=== PATIENT | female | born 1945 | race Caucasian/White ===

== ENCOUNTER → 2017-02-09 | Outpatient (CLI) | payer MEDICARE ==
--- NOTE | 2017-02-10 08:19 | MM ---
Reason for exam: screening (asymptomatic). Last mammogram was performed 1 year and 2 months ago. History: Patient is postmenopausal and history of other cancer. Family history of breast cancer in maternal cousin at age 50. Taking estrogen for 3 years. Physical Findings: A clinical breast exam by your physician is recommended on an annual basis and results should be correlated with mammographic findings. MG 3D Screening Mammo W/Cad Bilateral CC and MLO view(s) were taken. Prior study comparison: December 24, 2015, bilateral MG 3d screening mammo w/cad. December 22, 2014, bilateral MG screening mammo w CAD. There are scattered fibroglandular densities. There is no discrete abnormality. No significant changes when compared with prior studies. ASSESSMENT: Negative, BI-RAD 1 RECOMMENDATION: Routine screening mammogram of both breasts in 1 year.
== END | disposition home or self-care (01) ==
LOC: RADMAMWWP 09:59
PROVIDERS: ATTEND Internal Medicine
DX: Z12.31 Encounter for screening mammogram for malignant neoplasm of breast (principal)
CPT/HCPCS: 77063; G0202

== ENCOUNTER → 2018-03-12 | Outpatient (CLI) | payer MEDICARE ==
--- NOTE | 2018-03-14 13:23 | MM ---
Reason for exam: screening (asymptomatic). Last mammogram was performed 1 year and 1 month ago. History: Patient is postmenopausal and history of other cancer. Family history of breast cancer in maternal cousin at age 50. Taking estrogen for 3 years. Physical Findings: A clinical breast exam by your physician is recommended on an annual basis and results should be correlated with mammographic findings. MG 3D Screening Mammo W/Cad Bilateral CC and MLO view(s) were taken. Prior study comparison: February 09, 2017, bilateral MG 3d screening mammo w/cad. December 24, 2015, bilateral MG 3d screening mammo w/cad. The breast tissue is heterogeneously dense. This may lower the sensitivity of mammography. No significant changes when compared with prior studies. ASSESSMENT: Benign, BI-RAD 2 RECOMMENDATION: Routine screening mammogram of both breasts in 1 year.
== END | disposition home or self-care (01) ==
LOC: RADMAMWWP 07:51
PROVIDERS: ATTEND Internal Medicine
DX: Z12.31 Encounter for screening mammogram for malignant neoplasm of breast (principal)
CPT/HCPCS: 77063; 77067

== ENCOUNTER → 2019-03-22 | Outpatient (CLI) | payer MEDICARE ==
--- NOTE | 2019-03-26 09:09 | MM ---
Reason for exam: screening (asymptomatic). Last mammogram was performed 1 year ago. History: Patient is postmenopausal and history of other cancer. Family history of breast cancer in maternal cousin at age 50 and breast cancer in paternal cousin. Taking estrogen for 3 years. Physical Findings: A clinical breast exam by your physician is recommended on an annual basis and results should be correlated with mammographic findings. MG 3D Screening Mammo W/Cad Bilateral CC and MLO view(s) were taken. Prior study comparison: March 12, 2018, bilateral MG 3d screening mammo w/cad. February 09, 2017, bilateral MG 3d screening mammo w/cad. There are scattered fibroglandular densities. No significant changes when compared with prior studies. ASSESSMENT: Negative, BI-RAD 1 RECOMMENDATION: Routine screening mammogram of both breasts in 1 year.
== END | disposition home or self-care (01) ==
LOC: RADMAMWWP 08:44
PROVIDERS: ATTEND Internal Medicine
DX: Z12.31 Encounter for screening mammogram for malignant neoplasm of breast (principal)
CPT/HCPCS: 77063; 77067

== ENCOUNTER → 2019-05-03 | Outpatient (CLI) | payer MEDICARE ==
[2019-05-03 12:14] LABS: HCT 37.4 % (34.0-46.0); HGB 12.5 gm/dL (11.4-16.0); MCH 29.6 pg (25.0-35.0); MCHC 33.4 g/dL (31.0-37.0); MCV 88.7 fL (80.0-100.0); Mean Platelet Volume 6.3; Platelet Count 299 k/uL (150-450); RBC 4.22 m/uL (3.80-5.40); RDW 12.7 % (11.5-15.5); WBC 7.5 k/uL (3.8-10.6)
== END ==
LOC: LABWHC1 11:13
PROVIDERS: ATTEND Nurse Practitioner Adult Health
DX: I10 Essential (primary) hypertension (principal)
CPT/HCPCS: 36415; 85027

== ENCOUNTER → 2020-04-24 | Outpatient (CLI) | payer MEDICARE ==
--- NOTE | 2020-04-28 11:13 | MM ---
Reason for exam: screening (asymptomatic). Last mammogram was performed 1 year and 1 month ago. History: Patient is postmenopausal and history of other cancer. Family history of breast cancer in maternal cousin at age 50 and breast cancer in paternal cousin. Took estrogen for 3 years. Physical Findings: A clinical breast exam by your physician is recommended on an annual basis and results should be correlated with mammographic findings. MG 3D Screening Mammo W/Cad Bilateral CC and MLO view(s) were taken. Prior study comparison: March 22, 2019, bilateral MG 3d screening mammo w/cad. March 12, 2018, bilateral MG 3d screening mammo w/cad. There are scattered fibroglandular densities. No significant changes when compared with prior studies. ASSESSMENT: Negative, BI-RAD 1 RECOMMENDATION: Routine screening mammogram of both breasts in 1 year.
== END | disposition home or self-care (01) ==
LOC: RADMAMWWP 14:17
PROVIDERS: ATTEND Internal Medicine
DX: Z12.31 Encounter for screening mammogram for malignant neoplasm of breast (principal)
CPT/HCPCS: 77063; 77067

== ENCOUNTER 2021-04-05 15:19 | Inpatient (IN) | payer MEDICARE ==
[2021-04-05 16:34] LABS: Basophils # (A) 0.1 k/uL (0-0.2); Basophils % (A) 1 %; Eosinophils # (A) 0.2 k/uL (0-0.7); Eosinophils % (A) 3 %; HCT 40.4 % (34.0-46.0); HGB 13.7 gm/dL (11.4-16.0); Lymphocytes # (A) 1.9 k/uL (1.0-4.8); Lymphocytes % (A) 24 %; MCH 31.3 pg (25.0-35.0); MCHC 33.8 g/dL (31.0-37.0); MCV 92.6 fL (80.0-100.0); Mean Platelet Volume 8.1; Monocytes # (A) 0.7 k/uL (0-1.0); Monocytes % (A) 9 %; Neutrophils # (A) 4.9 k/uL (1.3-7.7); Neutrophils % (A) 61 %; Platelet Count 249 k/uL (150-450); RBC 4.37 m/uL (3.80-5.40); RDW 13.4 % (11.5-15.5); WBC 8.1 k/uL (3.8-10.6)
[2021-04-05 16:44] LABS: INR 0.9 (<1.2); Partial Thromboplastin Time 23.5 sec (22.0-30.0); Prothrombin Time 10.2 sec (9.0-12.0)
[2021-04-05 16:51] LABS: Albumin 4.5 g/dL (3.5-5.0); Calcium 9.3 mg/dL (8.4-10.2); Magnesium 2.1 mg/dL (1.6-2.3); Potassium 4.5 mmol/L (3.5-5.1); Total Bilirubin 0.2 mg/dL (0.2-1.3); Total Protein 7.4 g/dL (6.3-8.2)
--- NOTE | 2021-04-05 17:32 | XR ---
EXAMINATION TYPE: XR chest 2V DATE OF EXAM: 04/05/2021 COMPARISON: NONE HISTORY: Chest pain TECHNIQUE: 2 views FINDINGS: There is no heart failure nor confluent pneumonic infiltrate. Costophrenic angles are clear . Thoracic aorta is atheromatous. There are sternal wires. There are chest leads. Bony thorax is inta ct. IMPRESSION: No active cardiopulmonary disease. Normal heart.
--- NOTE | 2021-04-05 18:28 | ED ---
Chest Pain HPI - General Chief Complaint: Chest Pain Stated Complaint: chest pain Source: patient Mode of arrival: ambulatory Limitations: no limitations - History of Present Illness Initial Comments: 75 year female past medical history of hypertension, hyperlipidemia, coronary bypass surgery 3 years ago who presents to emergency room with reported chest pain. Patient states that she was playing cards around 2 PM when she had sudden onset of chest discomfort. Describes it as substernal without radiation. Denies any provocative factors. No associated shortness of breath. Denies nausea, vomiting or diaphoresis. No ripping or tearing sensation to her back. She took an aspirin at home before coming into the emergency department. No fevers, chills or cough. No numbness, tingling or weakness into her extremities. She had a triple bypass 3 years ago in [place]. States she follows with Dr. Priest. Chest pain is resolved at the time of my evaluation. No other alleviating, precipitating or modifying factors - Related Data Home Medications Medication Instructions Recorded Confirmed Aspirin EC [Ecotrin] 325 mg PO ONCE PRN 04/05/21 04/05/21 Aspirin [Adult Low Dose Aspirin EC] 81 mg PO HS 04/05/21 04/05/21 Calcium Carbonate [Calcium] 1,200 mg PO DAILY 04/05/21 04/05/21 EPINEPHrine (Auto Inject) [Epipen] 0.3 mg IM ONCE PRN 04/05/21 04/05/21 Levothyroxine Sodium [Synthroid] 50 mcg PO DAILY 04/05/21 04/05/21 Metoprolol Tartrate [Lopressor] 50 mg PO TID 04/05/21 04/05/21 Multivitamins, Thera [Multivitamin 1 tab PO DAILY 04/05/21 04/05/21 (formulary)] Rosuvastatin Calcium [Crestor] 40 mg PO HS 04/05/21 04/05/21 amLODIPine [Norvasc] 10 mg PO HS 04/05/21 04/05/21 diphenhydrAMINE [Benadryl] 25 mg PO Q8H PRN 04/05/21 04/05/21 lisinopriL [Zestril] 20 mg PO BID 04/05/21 04/05/21 Allergies Allergy/AdvReac Type Severity Reaction Status Date / Time No Known Allergies Allergy Verified 04/05/21 18:12 Review of Systems ROS Statement: Those systems with pertinent positive or pertinent negative responses have been documented in the HPI. ROS Other: All systems not noted in ROS Statement are negative. EKG Findings - EKG Comments: EKG Findings:: EKG demonstrates normal sinus rhythm with a ventricular rate 62. NV interval 168. QRS 86. QTC of 436. No acute ST segment elevations or depressions concerning for ischemic changes Past Medical History Past Medical History: Hyperlipidemia, Hypertension History of Any Multi-Drug Resistant Organisms: None Reported Past Surgical History: Cholecystectomy, Coronary Bypass/CABG, Hysterectomy Past Psychological History: No Psychological Hx Reported Smoking Status: Former smoker Past Alcohol Use History: Occasional Past Drug Use History: None Reported General Exam Limitations: no limitations General appearance: alert, in no apparent distress Head exam: Present: atraumatic, normocephalic, normal inspection Eye exam: Present: normal appearance, PERRL, EOMI. Absent: scleral icterus, conjunctival injection, periorbital swelling ENT exam: Present: normal exam, mucous membranes moist Neck exam: Present: normal inspection. Absent: tenderness, meningismus, lymphadenopathy Respiratory exam: Present: normal lung sounds bilaterally. Absent: respiratory distress, wheezes, rales, rhonchi, stridor Cardiovascular Exam: Present: regular rate, normal rhythm, normal heart sounds. Absent: systolic murmur, diastolic murmur, rubs, gallop, clicks GI/Abdominal exam: Present: soft, normal bowel sounds. Absent: distended, tenderness, guarding, rebound, rigid Extremities exam: Present: normal inspection, full ROM, normal capillary refill. Absent: tenderness, pedal edema, joint swelling, calf tenderness Back exam: Present: normal inspection Neurological exam: Present: alert, oriented X3, CN II-XII intact Psychiatric exam: Present: normal affect, normal mood Skin exam: Present: warm, dry, intact, normal color. Absent: rash Course Vital Signs 04/05/21 04/05/21 04/05/21 15:31 16:24 18:14 Temperature 97.8 F Pulse Rate 57 L 55 L 56 L Respiratory 18 18 18 Rate Blood Pressure 158/79 171/71 177/62 O2 Sat by Pulse 98 96 96 Oximetry 04/05/21 21:35 Temperature Pulse Rate 66 Respiratory 18 Rate Blood Pressure 144/55 O2 Sat by Pulse 98 Oximetry Chest Pain MDM - MDM Upon arrival patient was placed into room 3. A thorough history and physical exam was performed. 12-lead EKG was performed which answers no acute ST segment elevation or depression. Patient is pain-free at this time. Diaphoresis or conduct and the patient went for chest x-ray. Review of the patient's labs demonstrated a negative troponin. BNP is 177. Chest x-ray demonstrates no acute process. I did recommend admission orders from the patient's troponins. Patient did agree to this. She remained pain-free awaiting a bed on the floor Disposition Clinical Impression: Chest pain Disposition: ADMITTED IP TO THIS HOSP Condition: Stable Is patient prescribed a controlled substance at d/c from ED?: No Decision to Admit Reason: Admit from EC Decision Date: 04/05/21 Decision Time: 18:40
[2021-04-05] MEDS ORDERED: NITROGLYCERIN SL TABS 0.4 MG TAB SUBLINGUAL STA (18:39)
[2021-04-05] MEDS ORDERED: ACETAMINOPHEN TAB 325 MG TAB PO STA (18:39)
[2021-04-05] MEDS ORDERED: NALOXONE 0.4 MG/ML 1 ML VIAL IV PRN (18:40)
[2021-04-05] MEDS: ATORVASTATIN 80 MG TAB PO SCH (23:29)
[2021-04-05] MEDS: amLODIPine 10 MG TAB PO SCH (23:30)
[2021-04-05] MEDS: METOPROLOL TARTRATE 50 MG TAB PO SCH (23:30)
[2021-04-05] MEDS: lisinopriL 20 MG TAB PO SCH (23:30)
[2021-04-05] MEDS: ASPIRIN 81 MG PO SCH (23:30)
[2021-04-06] MEDS: lisinopriL 20 MG TAB PO SCH ×2 (08:39→20:54)
[2021-04-06] MEDS: METOPROLOL TARTRATE 50 MG TAB PO SCH ×3 (08:40→20:54)
[2021-04-06] MEDS ORDERED: REGADENOSON 0.4 MG/5 ML SYRINGE IV PRN (08:53)
[2021-04-06] MEDS ORDERED: CAFFEINE CITRATE 60 MG/3 ML VIAL IV PRN (08:53)
[2021-04-06] MEDS ORDERED: AMINOPHYLLINE 500 MG/20 ML VIAL IV PRN (08:53)
[2021-04-06 10:00] LABS: Basophils # (A) 0.06 X 10*3/uL (0.00-0.10); Basophils % (A) 0.7 %; Eosinophils # (A) 0.19 X 10*3/uL (0.04-0.35); Eosinophils % (A) 2.2 %; HCT 39.6 % (37.2-46.3); Lymphocytes # (A) 1.47 X 10*3/uL (0.90-5.00); Lymphocytes % (A) 17.3 %; MCH 30.1 pg (27.0-32.0); MCHC 32.8 g/dL (32.0-37.0); MCV 91.7 fL (80.0-97.0); Mean Platelet Volume 10.8 fL (9.5-12.2); Monocytes # (A) 0.77 X 10*3/uL (0.20-1.00); Monocytes % (A) 9.1 %; Neutrophils # (A) 5.96 X 10*3/uL (1.80-7.70); Neutrophils % (A) 70.3 %; Platelet Count 265 X 10*3/uL (140-440); RBC 4.32 X 10*6/uL (4.10-5.20); RDW 12.8 % (11.5-14.5); WBC 8.48 X 10*3/uL (4.50-10.00)
--- NOTE | 2021-04-06 10:01 | P.CRDCN ---
History of Present Illness History of present illness: HISTORY OF PRESENTING ILLNESS This is a pleasant 75-year-old female past medical history significant for coronary artery disease status post three-vessel bypass grafting in 2019 wh ile living in [place], hypertension and dyslipidemia. She follows in the office with Dr Chavez. We have been asked to see in consultation for chest pain. Dates yesterday she was sitting down doing nothing in particular when she had sudden onset of chest discomfort in the midsternal region. She states it was a heavy pain sensation that was mild in nature. There was no radiation to the arm, back, neck or jaw. She had no associated symptoms. However her discomfort felt exactly similar to how she felt prior to needing open heart surgery causing her some concern. She came to the hospital for further evaluation. The pain in total lasted approximately 30 minutes and subsided on its own. She has been chest pain-free since that time. DIAGNOSTICS EKG reveals sinus mechanism with no acute ST or T wave abnormalities noted. Telemetry tracings indicate sinus mechanism with no acute arrhythmia. Chest xray negative for any acute cardiopulmonary process. Laboratory reviewed, CBC unremarkable, sodium 136, potassium 4.5, creatinine 0.9, magnesium 2.1, cardiac enzymes negative 3, proBNP 177. Current cardiac medications include Lopressor 50 mg 3 times a day, lisinopril 20 mg twice a day, aspirin 81 mg daily, rosuvastatin 40 mg daily and amlodipine 10 mg daily. Most recent echocardiogram obtained November 2019 revealed preserved LV systolic function with ejection fraction 55%, mildly dilated right ventricle, slightly dilated right atrium, moderate mitral regurgitation, mild aortic regurgitation and mild to moderate tricuspid regurgitation. REVIEW OF SYSTEMS At the time of my exam: CONSTITUTIONAL: Denies fever or chills. CARDIOVASCULAR: Denies chest pain, shortness of breath, orthopnea, PND or palpitations. RESPIRATORY: Denies cough. GASTROINTESTINAL: Denies abdominal pain, diarrhea, constipation, nausea or vomiting. MUSCULOSKELETAL: Denies myalgias. NEUROLOGIC: Denies numbness, tingling, headache or weakness. ENDOCRINE: Denies fatigue, weight change, polydipsia or polyurina. GENITOURINARY: Denies burning, hematuria or urgency with micturation. HEMATOLOGIC: Denies history of anemia or bleeding. PHYSICAL EXAMINATION Blood pressure 137/63 heart rate 66 afebrile and maintaining oxygen saturation on room air. CONSTITUTIONAL: No apparent distress. HEENT: Head is normocephalic. Pupils are equal, round. Sclerae anicteric. Mucous membranes of the mouth are moist. No JVD. No carotid bruit. CHEST EXAMINATION: Lungs are clear to auscultation. No chest wall tenderness is noted on palpation or with deep breathing. HEART EXAMINATION: Regular rate and rhythm. S1, S2 heard. No murmurs, gallops or rub. ABDOMEN: Soft, nontender. EXTREMITIES: 2+ peripheral pulses, no lower extremity edema and no calf tenderness. NEUROLOGIC EXAMINATION: Patient is awake, alert and oriented x3. ASSESSMENT Chest pain Coronary artery disease status post bypass grafting Hypertension Dyslipidemia PLAN An acute coronary event has been ruled out. Given similar presentation of symptoms as to her previous coronary event we recommend proceeding with a Lexiscan stress test to assess for any reversible cardiac ischemia. If stress test is normal she may be discharged home to follow-up with Dr. Chavez in the office. Thank you kindly for this consultation. Nurse Practitioner note has been reviewed, I agree with a documented findings and plan of care. Patient was seen and examined. Past Medical History Past Medical History: Hyperlipidemia, Hypertension History of Any Multi-Drug Resistant Organisms: None Reported Past Surgical History: Cholecystectomy, Coronary Bypass/CABG, Hysterectomy Additional Past Surgical History / Comment(s): cataract sx Past Psychological History: No Psychological Hx Reported Smoking Status: Former smoker Past Alcohol Use History: Occasional Past Drug Use History: None Reported Medications and Allergies Home Medications Medication Instructions Recorded Confirmed Type Aspirin EC [Ecotrin] 325 mg PO ONCE PRN 04/05/21 04/05/21 History Aspirin [Adult Low Dose Aspirin EC] 81 mg PO HS 04/05/21 04/05/21 History Calcium Carbonate [Calcium] 1,200 mg PO DAILY 04/05/21 04/05/21 History EPINEPHrine (Auto Inject) [Epipen] 0.3 mg IM ONCE PRN 04/05/21 04/05/21 History Levothyroxine Sodium [Synthroid] 50 mcg PO DAILY 04/05/21 04/05/21 History Metoprolol Tartrate [Lopressor] 50 mg PO TID 04/05/21 04/05/21 History Multivitamins, Thera [Multivitamin 1 tab PO DAILY 04/05/21 04/05/21 History (formulary)] Rosuvastatin Calcium [Crestor] 40 mg PO HS 04/05/21 04/05/21 History amLODIPine [Norvasc] 10 mg PO HS 04/05/21 04/05/21 History diphenhydrAMINE [Benadryl] 25 mg PO Q8H PRN 04/05/21 04/05/21 History lisinopriL [Zestril] 20 mg PO BID 04/05/21 04/05/21 History Allergies Allergy/AdvReac Type Severity Reaction Status Date / Time No Known Allergies Allergy Verified 04/05/21 18:12 Physical Exam Vitals: Vital Signs Temp Pulse Pulse Resp BP BP Pulse Ox 04/06/21 08:30 99 04/06/21 07:00 97.8 F 66 18 137/63 97 04/06/21 02:00 98.2 F 66 16 141/77 97 04/05/21 22:49 98.3 F 62 16 148/60 95 04/05/21 21:35 66 18 144/55 98 04/05/21 18:14 56 L 18 177/62 96 04/05/21 16:24 55 L 18 171/71 96 04/05/21 15:31 97.8 F 57 L 18 158/79 98 Intake and Output 04/05/21 04/06/21 04/06/21 22:59 06:59 14:59 Other: Voiding Method Toilet # Voids 0 2 Weight 68.039 kg Results 04/05/21 16:23 04/05/21 16:23 Cardiac Enzymes 04/05/21 04/05/21 04/05/21 Range/Units 16:23 16:23 21:09 AST 31 (14-36) U/L Troponin I <0.012 <0.012 (0.000-0.034) ng/mL 04/06/21 Range/Units 00:41 AST (14-36) U/L Troponin I <0.012 (0.000-0.034) ng/mL Coagulation 04/05/21 Range/Units 16:23 PT 10.2 (9.0-12.0) sec APTT 23.5 (22.0-30.0) sec CBC 04/05/21 Range/Units 16:23 WBC 8.1 (3.8-10.6) k/uL RBC 4.37 (3.80-5.40) m/uL Hgb 13.7 (11.4-16.0) gm/dL Hct 40.4 (34.0-46.0) % Plt Count 249 (150-450) k/uL Comprehensive Metabolic Panel 04/05/21 Range/Units 16:23 Sodium 136 L (137-145) mmol/L Potassium 4.5 (3.5-5.1) mmol/L Chloride 104 (98-107) mmol/L Carbon Dioxide 23 (22-30) mmol/L BUN 27 H (7-17) mg/dL Creatinine 0.90 (0.52-1.04) mg/dL Glucose 96 (74-99) mg/dL Calcium 9.3 (8.4-10.2) mg/dL AST 31 (14-36) U/L ALT 22 (4-34) U/L Alkaline Phosphatase 51 (38-126) U/L Total Protein 7.4 (6.3-8.2) g/dL Albumin 4.5 (3.5-5.0) g/dL Current Medications Generic Name Dose Route Start Last Admin Trade Name Freq PRN Reason Stop Dose Admin Amlodipine Besylate 10 mg 04/05/21 23:00 04/05/21 23:30 Amlodipine 10 Mg Tab PO 10 mg HS KIYA Administration Aspirin 81 mg 04/05/21 23:00 04/05/21 23:30 Aspirin 81 Mg PO 81 mg HS KIYA Administration Atorvastatin Calcium 80 mg 04/05/21 23:00 04/05/21 23:29 Atorvastatin 80 Mg Tab PO 80 mg HS KIYA Administration Lisinopril 20 mg 04/05/21 23:00 04/06/21 08:39 Lisinopril 20 Mg Tab PO 20 mg BID KIYA Administration Metoprolol Tartrate 50 mg 04/05/21 23:00 04/06/21 08:40 Metoprolol Tartrate 50 Mg Tab PO 50 mg TID KIYA Administration Naloxone HCl 0.2 mg 04/05/21 18:40 Naloxone 0.4 Mg/Ml 1 Ml Vial IV Q2M PRN Opioid Reversal Intake and Output 04/05/21 04/06/21 04/06/21 22:59 06:59 14:59 Other: Voiding Method Toilet # Voids 0 2 Weight 68.039 kg 04/05/21 16:23 04/05/21 16:23
[2021-04-06 11:47] LABS: African American GFR (CKD) 82.4 (60.0-200.0); Anion Gap 9.1 mmol/L (4.00-12.00); BUN/Creat Ratio 23.75 Ratio (12.00-20.00); Calcium 8.9 mg/dL (8.7-10.3); Carbon Dioxide 24.9 mmol/L (21.6-31.8); Non-African American GFR(CKD) 71.1 (60.0-200.0); Potassium 4.3 mmol/L (3.5-5.5)
[2021-04-06] MEDS: ALBUTEROL NEBULIZED 2.5 MG/3 ML INHALATION SCH ×2 (11:52→20:05)
[2021-04-06] MEDS: LEVOTHYROXINE 50 MCG TAB PO SCH (13:12)
[2021-04-06] MEDS: MULTIVITAMINS, THERA 1 EACH TAB PO SCH (13:12)
[2021-04-06 13:22] LABS: Chol/HDL Ratio 2.98; LDL Cholesterol,Calculated 72.4 mg/dL (0.0-131.0); VLDL Calculation 14.6 mg/dL (5.00-40.00)
--- NOTE | 2021-04-06 14:41 | NM ---
EXAMINATION TYPE: NM stress lexiscan cardiolite DATE OF EXAM: 04/06/2021 COMPARISON: NONE HISTORY: Chest pain TECHNIQUE: After the intravenous administration of 9.3 mCi Tc 99m Sestamibi - Cardiolite resting SPE CT images acquired 45 minutes post injection. The patient received 0.4mg Lexiscan, 26.5 mCi Tc 99m Sestamibi - Stress images obtained [address] injection FINDINGS: Review of stress and rest SPECT images are markable for decreased uptake noted along the apical regio n on stress as compared to rest images extending into the lateral wall. Gated analysis shows normal wall motion with an estimated left ventricular ejection fraction of 69 %. IMPRESSION: Pharmacologically induced left ventricular myocardial ischemia. Consider echocardiographic correlation for elevated ejection fraction
[2021-04-06] MEDS ORDERED: ALPRAZolam 0.5 MG TAB PO PRN (14:47)
[2021-04-06] MEDS ORDERED: ALPRAZolam 0.25 MG TAB PO PRN (14:47)
--- NOTE | 2021-04-06 16:28 | P.STRESS ---
- Stress Test Note Stress Test Results/Findings: Exam Performed: NM stress lexiscan cardiolite Exam Date: 04/06/21 Reason for Exam: Chest Pain Height: 5 ft 2 in Weight: 68.04 kg Protocol: Lexiscan Stage: na Duration of Exercise: na Resting Heart Rate: 53 Resting Blood Pressure: 200/70 Maximum Achieved Heart Rate: 91 Maximum Achieved Blood Pressure: 200/70 85% PMHR: 122 100% PMHR: 143 METS: na Technologist Comment: Stress Test Results/Findings: The central EKG shows sinus rhythm with normal ST segments Baseline blood pressure 200/70 mmHg Patient received Lexiscan infusion protocol Changeinheartrate Elevated bloodpressurereadings 0.5mmSTdepressioninferolaterally Newproportionalbereportedseparately Noarrhythmias
--- NOTE | 2021-04-06 16:55 | HP ---
HISTORY AND PHYSICAL CHIEF COMPLAINT: Chest pain. HISTORY OF PRESENT ILLNESS: This 75-year-old woman with a past medical history of hypertension, hyperlipidemia, being followed by Dr. Drew in the outpatient setting, was complaining of chest pain. The patient had sudden onset of chest pain yesterday at 2 p.m. It was felt in the substernal area, more of a heaviness, mild to moderate intensity, 3-4 intensity, without any radiation, palpitation, diaphoresis. The patient came to [facility] and was admitted for further evaluation and treatment. EKG showed no abnormality. Troponins were negative. The patient underwent a stress echo which showed possible reversible ischemia. Patient is being closely monitored. Cardiology has seen the patient. There is no history of any fever, rigors or chills. No history of headache, loss of consciousness, seizures. PAST MEDICAL HISTORY: History of hypertension, hyperlipidemia. MEDICATIONS PRIOR TO ADMISSION: Home medications are aspirin, Norvasc, Crestor, multivitamins, Ecotrin, Benadryl, EpiPen, calcium, lopressor, Synthroid. ALLERGIES: NONE. FAMILY HISTORY: No history of heart disease or strokes in the family. SOCIAL HISTORY: Previous history of smoking. REVIEW OF SYSTEMS: ENT: No diminished hearing. No diminished vision. CARDIOVASCULAR SYSTEM: As mentioned earlier. RESPIRATORY SYSTEM: As mentioned earlier. GI: As mentioned earlier. : No dysuria. NERVOUS SYSTEM: No numbness, weakness. ALLERGY/IMMUNOLOGY: No asthma or hay fever. MUSCULOSKELETAL: As mentioned earlier. HEMATOLOGY/ONCOLOGY: No history of anemia. ENDOCRINE: No history of diabetes, hypothyroidism. CONSTITUTIONAL: As mentioned earlier. DERMATOLOGY: Negative. RHEUMATOLOGY: Negative. PSYCHIATRY: As mentioned earlier. PHYSICAL EXAMINATION: Patient is alert and oriented x3. Pulse 66, blood pressure 137/63, respiration 18, temperature 97.8, pulse ox 97% on room air. HEENT: Conjunctivae normal. NECK: No jugular venous distention. CARDIOVASCULAR: S1, S2 muffled. RESPIRATION: Breath sounds diminished at the bases. No rhonchi. No crackles. ABDOMEN: Soft, nontender. No mass palpable. LEGS: No edema. No swelling. NERVOUS SYSTEM: Higher functions as mentioned earlier. Moves all 4 limbs. No focal motor or sensory deficit. LYMPHATICS: No lymph node palpable in neck, axillae or groin. SKIN: No ulcer, rash, bleeding. JOINTS: No active deforming arthropathy. LABS: CBC within normal limits. Sodium 136, BUN is 27. ASSESSMENT: 1. Chest pain, possible unstable angina. 2. Positive stress echo. 3. Hyponatremia, mild. 4. Hypertension. 5. Hyperlipidemia. 6. History of cholecystectomy. 7. History of coronary artery disease, coronary artery bypass grafting. 8. History of nicotine dependence. RECOMMENDATIONS AND DISCUSSION: In this 75-year-old who presented with multiple medical issues, we will monitor the patient closely, continue the current medications, continue symptomatic treatment, continue the antiplatelet agents. Continue the rest of the medication. Continue with Lipitor. Possible cardiac cath. Closely follow with Cardiology. Guarded prognosis. Further recommendations to follow. MMODL / IJN: [id number] /
[2021-04-06] MEDS: ASPIRIN 81 MG PO SCH (20:54)
[2021-04-06] MEDS: amLODIPine 10 MG TAB PO SCH (20:54)
[2021-04-06] MEDS: ATORVASTATIN 80 MG TAB PO SCH (20:54)
[2021-04-06] MEDS ORDERED: SODIUM CHLORIDE 0.9% 1,000 ML in EMPTY BAG 1 BAG IV ONE (23:59)
[2021-04-07] MEDS: METOPROLOL TARTRATE 50 MG TAB PO SCH ×3 (05:35→21:47)
[2021-04-07] MEDS: MULTIVITAMINS, THERA 1 EACH TAB PO SCH (05:36)
[2021-04-07] MEDS: LEVOTHYROXINE 50 MCG TAB PO SCH (05:36)
[2021-04-07] MEDS: lisinopriL 20 MG TAB PO SCH ×2 (05:36→21:48)
[2021-04-07] MEDS ORDERED: ASPIRIN 325 MG TAB PO ONE (06:00)
[2021-04-07] MEDS ORDERED: HEPARIN SODIUM,PORCINE 10,000 UNIT in SODIUM CHLORIDE 0.9% 1,000 ML IRRIGATION PRN (07:00)
[2021-04-07] MEDS ORDERED: HEPARIN SODIUM,PORCINE 2,500 UNIT in SODIUM CHLORIDE 0.9% 250 ML IRRIGATION PRN (07:00)
[2021-04-07] MEDS: ALBUTEROL NEBULIZED 2.5 MG/3 ML INHALATION SCH ×3 (09:18→19:24)
[2021-04-07] MEDS: EZETIMIBE 10 MG TAB PO SCH (10:34)
--- NOTE | 2021-04-07 10:46 | ECHOS ---
Stress Test Results/Findings: Exam Performed: NM stress lexiscan cardiolite Exam Date: 04/06/21 Reason for Exam: Chest Pain Height: 5 ft 2 in Weight: 68.04 kg Protocol: Lexiscan Stage: na Duration of Exercise: na Resting Heart Rate: 53 Resting Blood Pressure: 200/70 Maximum Achieved Heart Rate: 91 Maximum Achieved Blood Pressure: 200/70 85% PMHR: 122 100% PMHR: 143 METS: na Technologist Comment: Stress Test Results/Findings: The central EKG shows sinus rhythm with normal ST segments Baseline blood pressure 200/70 mmHg Patient received Lexiscan infusion protocol Change in heart rate Elevated blood pressure readings 0.5mmST depression inferolaterally Nuclear medicine portion reported separately No arrhythmias MTDD
[2021-04-07] MEDS ORDERED: VERAPAMIL 2.5 MG/ML 2 ML AMP ONE (15:11)
[2021-04-07] MEDS ORDERED: LIDOCAINE 1% INJ 10MG/ML (20 ML MDV) ONE (15:11)
[2021-04-07] MEDS ORDERED: HEPARIN SODIUM 1,000 UN/ML (10ML VL) ONE (15:11)
[2021-04-07] MEDS ORDERED: IV FLUID CONTINUATION 100 ML IV ONE (15:27)
[2021-04-07] MEDS ORDERED: MIDAZOLAM 2 MG/2 ML VIAL IV ONE (15:35)
[2021-04-07] MEDS ORDERED: LIDOCAINE 1% INJ 10MG/ML (20 ML MDV) SQ ONE (15:36)
[2021-04-07] MEDS ORDERED: RX INFO: IV CONTRAST WAS GIVEN 1 EACH MISC MISCELLANE PRN (15:59)
[2021-04-07] MEDS ORDERED: SODIUM CHLORIDE 0.9% 1,000 ML IV SCH (16:00)
[2021-04-07] MEDS ORDERED: IOPAMIDOL-370 125ML BTL INJ ONE (16:08)
--- NOTE | 2021-04-07 19:57 | PN ---
PROGRESS NOTE DATE OF SERVICE: 04/07/2021 This 75-year-old woman being for Dr. Drew in the outpatient setting was admitted with chest pain. Patient had abnormal cardiac stress test. Patient is scheduled for cardiac cath today. No chest pain, no palpitation, no fever. EXAM: Alert and oriented x3. Pulse 59, blood pressure 160/70, respirations 16, temperature is normal, pulse ox 98% on room air. HEENT: Conjunctivae normal. Oral mucosa moist. NECK: No jugular venous distention. No lymph node enlargement. CARDIOVASCULAR: S1, S2, muffled. No S3, no S4, RESPIRATORY: Diminished breath sounds at the bases. No rhonchi, no crackles. ABDOMEN: Soft, nontender. LEGS: No edema, no swelling. NERVOUS SYSTEM: No focal deficits. LABS: Noted. ASSESSMENT: 1. Chest pain, possible unstable angina. 2. Positive stress test. 3. Hypertension. 4. Hypernatremia, mild. 5. Hyperlipidemia. 6. History of cholecystectomy. 7. History of CAD, CABG. 8. History of nicotine dependence. RECOMMENDATION: Recommend to continue current management, continue symptomatic treatment. Otherwise, I would recommend continue with Norvasc and current medications. The blood pressure is still elevated. Hydralazine may be added to the current regimen. Guarded prognosis. Further recommendations to follow. MMODL / IJN: [id number] /
[2021-04-07] MEDS: amLODIPine 10 MG TAB PO SCH (21:48)
[2021-04-07] MEDS: ASPIRIN 81 MG PO SCH (21:48)
[2021-04-07] MEDS: hydrALAZINE HCL 50 MG TAB PO SCH ×2 (21:48)
[2021-04-07] MEDS: ATORVASTATIN 80 MG TAB PO SCH (21:48)
--- NOTE | 2021-04-07 22:21 | CC ---
CARDIAC CATHETERIZATION REPORT DATE OF PROCEDURE: 04/07/2021 PERFORMING PHYSICIAN: Praveen Chavez M.D. PROCEDURE PERFORMED: 1. Selective left and right coronary angiogram. 2. Left heart catheterization. 3. GARCIA to LAD angiogram. 4. SVG to LCX angiogram. 5. SVG to RCA angiogram. INDICATION: Chest discomfort and abnormal myocardial perfusion imaging stress test. COMPLICATIONS: None. LEVEL OF SEDATION: Moderate, with sedation length of 21 minutes. PROCEDURE DESCRIPTION: After obtaining informed consent, the patient was brought to the cardiac chemical lab supervisor. The right common femoral artery was cannulated using micropuncture technique. The micropuncture wire passed easily. Then I placed a 6-Portuguese sheath at the right common femoral artery. Selective left and right coronary angiogram was performed using JL4 and JR4 catheters. GARCIA to LAD angiogram was performed using JR4 catheter. SVG to RCA angiogram was performed using a multipurpose catheter. SVG to left circumflex angiogram was performed using a JR4 catheter. After that I did left heart catheterization using a 6-Portuguese pigtail catheter. The procedure was completed without any complication after I did selective right common femoral artery angiogram. SELECTIVE CORONARY ANGIOGRAM: 1. The left main appeared to have mild disease only. It bifurcates into left circumflex and left anterior descending artery. 2. The left circumflex is a large-caliber vessel. The left circumflex is chronically occluded by the proximal to mid portion. 3. The LAD. The proximal LAD has a lesion that appeared to be in the range of 70% to 80%. It gives rise to first and second diagonal branches, then the LAD in the mid portion appeared to be subtotally occluded with competitive flow from the GARCIA. 4. The right coronary artery is subtotally occluded. ANGIOPLASTY OF CORONARY BYPASSES: 1. The GARCIA to LAD is patent. 2. The SVG to left circumflex is patent. 3. The SVG to RCA is patent. HEMODYNAMICS: The LVEDP was 10 to 12 mmHg without significant gradient across the aortic valve. CONCLUSION: 1. Severe triple-vessel coronary artery disease. 2. Patent GARCIA to LAD. 3. Patent SVG to LCX. 4. Patent SVG to RCA. 5. Normal LVEDP. POSTPROCEDURE MANAGEMENT: Medical treatment and follow up with the patient. MMODL / IJN: [id number] /
[2021-04-07 22:40] VITALS: PULSE 62
[2021-04-08 02:37] VITALS: BP 164/62; RESP 16; TEMP 97.8
[2021-04-08] MEDS: LEVOTHYROXINE 50 MCG TAB PO SCH (05:34)
[2021-04-08 06:25] LABS: Basophils # (A) 0.1 k/uL (0-0.2); Basophils % (A) 1 %; Eosinophils # (A) 0.2 k/uL (0-0.7); Eosinophils % (A) 3 %; HCT 43.6 % (34.0-46.0); HGB 14.5 gm/dL (11.4-16.0); Lymphocytes # (A) 1.6 k/uL (1.0-4.8); Lymphocytes % (A) 21 %; MCH 30.9 pg (25.0-35.0); MCHC 33.3 g/dL (31.0-37.0); MCV 92.9 fL (80.0-100.0); Mean Platelet Volume 7.8; Monocytes # (A) 0.6 k/uL (0-1.0); Monocytes % (A) 7 %; Neutrophils # (A) 5.1 k/uL (1.3-7.7); Neutrophils % (A) 66 %; Platelet Count 268 k/uL (150-450); RBC 4.69 m/uL (3.80-5.40); RDW 13.2 % (11.5-15.5); WBC 7.7 k/uL (3.8-10.6)
[2021-04-08 06:40] LABS: African American GFR (CKD) 84 (>60 ml/min/1.73 sqM); Anion Gap 8 mmol/L; Blood Urea Nitrogen 18 mg/dL (7-17); Carbon Dioxide 24 mmol/L (22-30); Chloride 104 mmol/L (98-107); Glucose 102 mg/dL (74-99); Non-African American GFR(CKD) 73 (>60 ml/min/1.73 sqM); Potassium 4.3 mmol/L (3.5-5.1); Sodium 136 mmol/L (137-145)
[2021-04-08] MEDS ORDERED: carvediloL 12.5 MG TAB PO SCH (08:15)
[2021-04-08] MEDS: ALBUTEROL NEBULIZED 2.5 MG/3 ML INHALATION SCH (08:37)
[2021-04-08] MEDS: MULTIVITAMINS, THERA 1 EACH TAB PO SCH (09:03)
[2021-04-08] MEDS: lisinopriL 20 MG TAB PO SCH (09:05)
[2021-04-08] MEDS: EZETIMIBE 10 MG TAB PO SCH (09:08)
--- NOTE | 2021-04-08 10:04 | P.PN ---
Subjective This is a pleasant 75-year-old female past medical history significant for coronary artery disease status post three-vessel bypass grafting in 2019 while living in [place], hypertension and dyslipidemia. She follows in the office with Dr Chavez. We have been asked to see in consultation for chest pain. Most recent echocardiogram obtained November 2019 revealed preserved LV systolic function with ejection fraction 55%, mildly dilated right ventricle, slightly dilated right atrium, moderate mitral regurgitation, mild aortic regurgitation and mild to moderate tricuspid regurgitation. Given similar presentation of symptoms as to her previous coronary event cardiology recommend proceeding with a Lexiscan stress test to assess for any reversible cardiac ischemia. Lexiscan stress test on 04/06/2021 revealed pharmacologically induced left ventricular myocardial ischemia. Patient underwent cardiac catheterization with Dr. Chavez on 04/07/2021 which revealed patent GARCIA to LAD, patent SVG to LCx, patent SVG to RCA, normal LVEDP. Medical therapy is recommended. Patient seen and examined at bedside, no acute distress. She denies any chest pain, shortness of breath, lightheadedness, dizziness. Her blood pressure continues to be elevated. Blood pressure 164/62, heart rate 62, afebrile, maintaining oxygen saturations 98% on room air. She is currently maintained on amlodipine 10 mg nightly, aspirin 81 mg daily, atorvastatin 80 mg nightly, Zetia 10 mg daily, lisinopril 20 mg twice a day, metoprolol tartrate 50 mg 3 times a day. PHYSICAL EXAMINATION CONSTITUTIONAL: No apparent distress. HEENT: Head is normocephalic. Pupils are equal, round. Sclerae anicteric. Mucous membranes of the mouth are moist. No JVD. No carotid bruit. CHEST EXAMINATION: Lungs are clear to auscultation. No chest wall tenderness is noted on palpation or with deep breathing. HEART EXAMINATION: Regular rate and rhythm. S1, S2 heard. No murmurs, gallops or rub. ABDOMEN: Soft, nontender. EXTREMITIES: 2+ peripheral pulses, no lower extremity edema and no calf tenderness. NEUROLOGIC EXAMINATION: Patient is awake, alert and oriented x3. SKIN: Right fem cath site, clean dry intact no hematoma ASSESSMENT Chest pain Coronary artery disease status post bypass grafting Hypertension Dyslipidemia PLAN We will discontinue metoprolol tartrate Start carvedilol 12.5 mg twice a day Continue Zetia, amlodipine, statin, aspirin, lisinopril. From cardiology perspective, patient stable to be discharged home. Patient to follow-up in the office with Dr. Chavez within one week. Nurse Practitioner note has been reviewed, I agree with a documented findings and plan of care. Patient was seen and examined. Objective - Vital Signs Vital signs: Vital Signs Temp 97.8 F 04/08/21 00:42 Pulse 62 04/08/21 00:42 Resp 16 04/08/21 00:42 BP 164/62 04/08/21 00:42 Pulse Ox 98 04/08/21 00:42 Intake & Output 04/07/21 04/08/21 04/08/21 18:59 06:59 18:59 Intake Total 884 240 Balance 884 240 Intake: IV 100 Intake, IV Titration 544 Amount Sodium Chloride 0.9% 1, 544 000 ml In Empty Bag 1 bag @ 1 ML/KG/HR 68.04 mls/ hr IV .[id number] ONE Rx#: [id number] Oral 240 240 Other: Voiding Method Toilet # Voids 2 1 # Bowel Movements 0 - Labs CBC & Chem 7: 04/08/21 05:50 04/08/21 05:50 Labs: Abnormal Lab Results - Last 24 Hours (Table) 04/08/21 Range/Units 05:50 Sodium 136 L (137-145) mmol/L BUN 18 H (7-17) mg/dL Glucose 102 H (74-99) mg/dL
--- NOTE | 2021-04-08 17:59 | DS ---
DISCHARGE SUMMARY FINAL DIAGNOSES: 1. Chest pain possible unstable angina, status post cardiac catheterization. 2. Positive stress test. 3. Hypertension. 4. Hyponatremia mild. 5. Hyperlipidemia. 6. History of cholecystectomy. 7. History of coronary artery disease/coronary artery bypass grafting. 8. History of nicotine dependence. DISCHARGE DISPOSITION: The patient being discharged in stable condition with guarded prognosis. HISTORY OF PRESENT ILLNESS: This 75 -year-old woman with a past history of multiple medical problems was admitted with chest pain, myocardial infarction, ruled out. Stress test was abnormal. The patient underwent a cardiac cath done by Dr. Chavez which showed severe triple-vessel disease, [place] arteries and patent GARCIA to LAD, patent SVG to left circumflex and patent SVG to RCA, normal LVEDP. Medication adjusted. The patient improved significantly. The patient discharged home in stable condition with guarded prognosis. EXAM: Vitals signs are stable. Cardiovascular: S1, S2 muffled. Abdomen soft. Nervous system: No focal deficits. DISCHARGE ADVICE AND MEDICATIONS: 1. Diet is cardiac diet. 2. Activity limited until followup. 3. Follow up with Dr. Drew in 2-3 days. 4. Follow up with Dr. Cahvez as recommended. DISCHARGE MEDICATIONS: 1. Ecotrin 81 mg p.o. daily. 2. Benadryl 25 mg q.8. 3. Calcium 100 mg p.o. daily. 4. Crestor 40 mg q.h.s. 5. EpiPen as before. 6. Multivitamins one p.o. daily. 7. Norvasc 10 mg q.h.s. 8. Synthroid 50 mcg p.o. daily. 9. Zestril 20 mg p.o. b.i.d. 10.Coreg 12.5 mg p.o. b.i.d. 11.Zetia 10 mg p.o. daily. Once again the patient discharged in stable and guarded prognosis. MMODL / IJN: [id number] /
== END 2021-04-08 11:22 | disposition home or self-care (01) ==
LOC: EC 15:19 → 6NMEDSUR 18:40 → OBSVTOIN 04-07 08:52
PROVIDERS: ADMIT Hospitalist; ATTEND Hospitalist
CPT/HCPCS: 36415; 71046; 78452; 80048; 80053; 80061; 83735; 83880; 84484; 85025; 85610; 85730; 93005; 93017; 93458; 94640; 94760; 99285

== ENCOUNTER → 2021-05-21 | Outpatient (CLI) | payer MEDICARE ==
--- NOTE | 2021-05-24 10:58 | MM ---
Reason for exam: screening (asymptomatic). Last mammogram was performed 1 year and 1 month ago. History: Patient is postmenopausal and history of other cancer. Family history of breast cancer in maternal cousin at age 50 and breast cancer in paternal cousin. Took estrogen for 3 years. Physical Findings: A clinical breast exam by your physician is recommended on an annual basis and results should be correlated with mammographic findings. MG 3D Screening Mammo W/Cad Bilateral CC and MLO view(s) were taken. Prior study comparison: April 24, 2020, bilateral MG 3d screening mammo w/cad. March 22, 2019, bilateral MG 3d screening mammo w/cad. There are scattered fibroglandular densities. ASSESSMENT: Negative, BI-RAD 1 RECOMMENDATION: Routine screening mammogram of both breasts in 1 year.
== END | disposition home or self-care (01) ==
LOC: RADMAMWWP 10:48
PROVIDERS: ATTEND Internal Medicine
DX: Z12.31 Encounter for screening mammogram for malignant neoplasm of breast (principal); Z80.3 Family history of malignant neoplasm of breast; Z78.0 Asymptomatic menopausal state
CPT/HCPCS: 77063; 77067

== ENCOUNTER → 2021-12-07 | Outpatient (CLI) | payer MEDICARE ==
--- NOTE | 2021-12-07 15:48 | XR ---
Right hip HISTORY: Right hip pain 2 views of the right hip There is concentric joint space loss and marginal spurring, subchondral sclerosis and possible subcho ndral geode formation. Alignment is maintained. Distal fracture or dislocation. IMPRESSION: Correlate fracture or arthritis, there may be femoral acetabular impingement
== END | disposition home or self-care (01) ==
LOC: RADXRYALE 15:15
PROVIDERS: ATTEND Internal Medicine
DX: M25.551 Pain in right hip (principal)
CPT/HCPCS: 73502

== ENCOUNTER → 2023-01-06 | Outpatient (CLI) | payer MEDICARE ==
--- NOTE | 2023-01-06 14:55 | BD ---
EXAMINATION TYPE: Axial Bone Density DATE OF EXAM: 01/06/2023 CLINICAL HISTORY: 77 years old Female. ICD-10 CODE: N958 MARTHA DISORDER Height: 61in Weight: 147lb FRAX RISK QUESTIONS: Secondary Osteoporosis: 3. Menopause before 45: yes RISK FACTORS HISTORY OF: Active: yes Postmenopausal woman: yes Take estrogen and/or progesterone medications: yes, none current How lon-3 years MEDICATIONS: Thyroid Medications: Which medication: Synthroid How Lon years Additional Medications: bp meds, cholesterol med Additional History: EXAM MEASUREMENTS: Bone mineral densitometry was performed using the [facility]. Bone mineral density as measured about the Lumbar spine is: ----- L1-L4(G/cm2): 1.245 T Score Values are as follows: ----- L1: -0.4 ----- L2: -0.8 ----- L3: 0.5 ----- L4: 2.2 ----- L1-L4: 0.5 Z Score Values are as follows: ----- L1: 1.3 ----- L2: 0.9 ----- L3: 2.3 ----- L4: 3.9 ----- L1-L4: 2.3 No comparison available since study of: 01-03-12 Bone mineral density about the R hip (g/cm2): 0.944 Bone mineral density about the L hip (g/cm2): 0.939 T Score values are as follows: -----R Neck: -0.6 -----L Neck: -0.4 -----R Total: -0.5 -----L Total: -0.5 Z Score values are as follows: -----R Neck: 1.5 -----L Neck: 1.7 -----R Total: 1.4 -----L Total: 1.4 Bone mineral density has: Decreased -8.9% since study of: 01-03-12 FRAX%s: The graph provided illustrates a 10% chance for a major osteoporotic fx and a 1.5% chance for the hips probability for fx in 10 years time. IMPRESSION: Normal (Values between +1 and -1 indicate normal bone mass). Consider repeating this study in 5 year s or sooner if there is some new clinical indication. NOTE: T-SCORE=SD OF THE YOUNG ADULT MEAN.
--- NOTE | 2023-01-09 10:18 | MM ---
Reason for Exam: Screening (asymptomatic). Last mammogram was performed 1 year(s) and 8 month(s) ago. Patient History: Menarche at age 10. First Full-Term at age 17. Left ovary removed at age 50. Right ovary removed at age 50. Hysterectomy at age 50. Postmenopausal. Other cancer. Patient used Estrogen for 3 years. Paternal cousin had breast cancer. Maternal cousin had breast cancer, age 50. Risk Values: Gifty 5 year model risk: 1.2%. NCI Lifetime model risk: 2.0%. Prior Study Comparison: 03/22/2019 Bilateral Screening Mammogram, [facility]. 04/24/2020 Bilateral Screening Mammogram, [facility]. 05/21/2021 Bilateral Screening Mammogram, [facility]. Tissue Density: The breast tissue is heterogeneously dense. This may lower the sensitivity of mammography. Findings: Analyzed By CAD. There is no suspicious group of microcalcifications or new suspicious mass in either breast. Overall Assessment: Negative, BI-RAD 1 Management: Screening Mammogram of both breasts in 1 year. . Patient should continue monthly self-breast exams. A clinical breast exam by your physician is recommended on an annual basis. This exam should not preclude additional follow-up of suspicious palpable abnormalities. Note on Gifty scores and lifetime risk: 1. A Gifty score greater than 3% is considered moderate risk. If this is the case, consider specialist referral to assess eligibility for a risk reducing agent. 2. If overall lifetime risk for the development of breast cancer is 20% or higher, the patient may qualify for future screening with alternating mammogram and breast MRI. Electronically signed and approved by: Ye Harley M.D.
== END | disposition home or self-care (01) ==
LOC: RADBDWWP 12:49
PROVIDERS: ATTEND Internal Medicine
DX: Z12.31 Encounter for screening mammogram for malignant neoplasm of breast (principal); M85.88 Other specified disorders of bone density and structure, other site; Z80.3 Family history of malignant neoplasm of breast; Z78.0 Asymptomatic menopausal state
CPT/HCPCS: 77063; 77067; 77080

== ENCOUNTER → 2024-03-06 | Outpatient (CLI) | payer MEDICARE ==
--- NOTE | 2024-03-06 08:56 | MM ---
Reason for Exam: Screening (asymptomatic). Last mammogram was performed 1 year(s) and 1 month(s) ago. Patient History: Menarche at age 10. First Full-Term at age 17. Left ovary removed at age 50. Right ovary removed at age 50. Hysterectomy at age 50. Postmenopausal. Other cancer. Patient used Estrogen for 3 years. Paternal cousin had breast cancer, age 35. Maternal cousin had breast cancer, age 50. Risk Values: Gifty 5 year model risk: 1.2%. NCI Lifetime model risk: 1.8%. Prior Study Comparison: 04/24/2020 Bilateral Screening Mammogram, [facility]. 05/21/2021 Bilateral Screening Mammogram, [facility]. 01/06/2023 Bilateral MG 3D screening mammo w/cad, [facility]. Tissue Density: There are scattered areas of fibroglandular density. Findings: Analyzed By CAD. There is no suspicious group of microcalcifications or new suspicious mass in either breast. Overall Assessment: Negative, BI-RAD 1 Management: Screening Mammogram of both breasts in 1 year. . Patient should continue monthly self-breast exams. A clinical breast exam by your physician is recommended on an annual basis. This exam should not preclude additional follow-up of suspicious palpable abnormalities. Note on Gifty scores and lifetime risk: 1. A Gifty score greater than 3% is considered moderate risk. If this is the case, consider specialist referral to assess eligibility for a risk reducing agent. 2. If overall lifetime risk for the development of breast cancer is 20% or higher, the patient may qualify for future screening with alternating mammogram and breast MRI. Electronically signed and approved by: Gerard Ferguson M.D. Radiologis
== END | disposition home or self-care (01) ==
LOC: RADMAMWWP 07:04
PROVIDERS: ATTEND Internal Medicine
DX: Z12.31 Encounter for screening mammogram for malignant neoplasm of breast (principal); R92.323 Mammographic fibroglandular density, bilateral breasts; Z78.0 Asymptomatic menopausal state; Z80.3 Family history of malignant neoplasm of breast
CPT/HCPCS: 77063; 77067